=== PATIENT | female | born 1985 | race Caucasian/White ===

== ENCOUNTER → 2016-07-08 12:45 | Outpatient (CLI) | payer MEDICAID ==
[2010-05-29 07:37] VITALS: BMI 29.2
== END | disposition home or self-care (01) ==
LOC: D.MRI 12:45
DX: M54.12 Radiculopathy, cervical region (principal); D49.6 Neoplasm of unspecified behavior of brain

== ENCOUNTER 2016-09-16 05:06 | Inpatient (IN) | payer MEDICAID ==
[2016-09-15 13:38] LABS: HEMATOCRIT 44.2 % (36.0-48.0); HEMOGLOBIN 14.8 g/dL (12-16); MCHC 33.5 g/dL (31.0-37.0); MCV 101.6 fL (80.0-100.0); MEAN PLATELET VOLUME 10.2 fL (7.4-10.4); RBC 4.35 10x6/uL (4.00-5.40); RDW 12.5 % (11.5-14.5); WBC 10.2 10x3/uL (4.8-10.8)
[~2016-09-16] VITALS: Ht 163.8 cm; Wt 68.1 kg
[2016-09-16] VITALS (18 sets, daily range): BP systolic 92–122; BP diastolic 40–87; Ht 163.8 cm; Wt 68.1 kg
[~2016-09-16 05:06] MED LIST: GABAPENTIN100 MG PO; KLONOPIN1 MG PO; LATUDA40 MG PO; OMEPRAZOLE40 MG PO; ROBAXIN500 MG PO; ZOVIRAX800 MG PO
[2016-09-16 06:23] LABS: HCG URINE NEGATIVE (NEGATIVE)
--- NOTE | 2016-09-16 10:30 | NUR ---
PT ARRIVED BY BED FROM RECOVERY ROOM. PLACED ON ICU MONITORS. CALL LIGHT WITHIN REACH. ORIENTED TO ROOM.
--- NOTE | 2016-09-16 11:20 | NUR ---
PT'S STEP MOM AT BEDSIDE. UPDATED ON PT'S STATUS.
--- NOTE | 2016-09-16 13:56 | NUR ---
PT ASSISTED UP TO THE RESTROOM. TOLERATED WELL. SOFT COLLAR PLACED ON PT FOR AMBULATION. VSS AT THIS TIME.
--- NOTE | 2016-09-16 16:38 | NUR ---
DR. VIDALES AT BEDSIDE. SPOKE WITH PT AND CALLED PT'S MOM ON TELEPHONE AND UPDATED THEM ON PT'S STATUS.
--- NOTE | 2016-09-16 16:41 | NUR ---
HANDOFF REPORT GIVEN TO KIMBERLEE MOSS RN
--- NOTE | 2016-09-16 16:45 | NUR ---
REC'D REPORT FROM KRYS AGOSTO RN, AND RESUMED CARE, PATIENT SLEEPING WITH NO SIGNS OF DISTRESS, VSS, LEFT NECK DRESSING CDI, DENIES PAIN AT THIS TIME, BLOODY DRAINAGE TO COMPRESSED BERNY BULB, WILL CONTINUE WITH POC
--- NOTE | 2016-09-16 17:10 | NUR ---
DINNER TRAY TO BEDSIDE, INDEPENDENT WITH SET UP AND EATING
--- NOTE | 2016-09-16 18:00 | NUR ---
FAMILY AT BEDSIDE, STATUS UPDATED, NO NEEDS AT THIS TIME, PATIENT RESTING, WATCHING TV, CALL LIGHT IN REACH
--- NOTE | 2016-09-16 19:15 | NUR ---
REC'D TO CARE, ASSISTED TO BR WITH SOFT NECK COLLAR ON. BACK TO BED. SEE MECHANICAL OPERATOR. PT RECENTLY HAD PRN PAIN MED FOR NECK. L NECK DSG C/D/I. VSS. NO SIGN OF DISTRESS. ALARMS ON AND C/L IN REACH.
--- NOTE | 2016-09-16 19:50 | NUR ---
PT ON PHONE, REPORTS ADEQUATE PAIN RELIEF.
--- NOTE | 2016-09-16 21:43 | NUR ---
UP TO BR WITH ASSIST AND NECK COLLAR. BACK TO BED, ADMIN PRN ROBAXIN PER PT REQUEST. ALARMS ON AND C/L IN REACH.
--- NOTE | 2016-09-16 22:38 | NUR ---
ADMIN PRN NORCO FOR C/O INCISIONAL PAIN - ALARMS ON AND C/L IN USE.
[2016-09-17] VITALS (8 sets, daily range): BP systolic 97–112; BP diastolic 53–79
--- NOTE | 2016-09-17 01:23 | NUR ---
RESTING WITH EYES CLOSED, VSS. NO SIGN OF DISTRESS.
--- NOTE | 2016-09-17 03:15 | NUR ---
REASSESSMENT PER FLOWSHEET, NO ACUTE CHANGES. PT RESTING QUIETLY, VSS.
--- NOTE | 2016-09-17 06:04 | NUR ---
PT TO BR, VOIDED 450ML CLEAR, YELLOW URINE. THERESA-CARE PER PT AND BACK TO BED, ADMIN PRN MED PER PT REQUEST - SEE MAR. ALARMS ON AND C/L IN REACH.
--- NOTE | 2016-09-17 07:20 | NUR ---
RECEIVED PT FOR CARE. PT SITTING UP IN BED TALKING IN TELEPHONE. NO NEEDS AT THIS TIME. CALL LIGHT WITHIN REACH.
[2016-09-17] MEDS ORDERED: NORCO 7.5/325 T1 TA1 PO (09:57)
--- NOTE | 2016-09-17 10:15 | NUR ---
RIGHT HAND PIV D/C'D WITH CATH TIP INTACT. PT TOLERATED WELL. DISCUSSED ALL DISCHARGE INSTRUCTIONS. PT VOICED UNDERSTANDING. PT GIVEN PRESCRIPTION FOR LORTAB FROM DR. VIDALES.
--- NOTE | 2016-09-17 10:30 | NUR ---
PT TAKEN TO VEHICLE BY WHEELCHAIR. NO S/S OF DISTRESS NOTED. REPORTS HAVING ALL BELONGINGS WITH HER.
== END 2016-09-17 10:30 | disposition home or self-care (01) | DRG 30 ==
LOC: D.CVICU 05:06 → D.SDCHOLD 05:06 → D.CVICU 09:44
PROVIDERS: Anesthesiology; ADMIT Neurological Surgery
PROC: 0RG10A0 Fusion of Cervical Vertebral Joint with Interbody Fusion Device, Anterior Approach, Anterior Column, Open Approach (ICD-10-PCS; principal; 2016-09-16 07:30)
DX: M54.12 Radiculopathy, cervical region (principal); F17.200 Nicotine dependence, unspecified, uncomplicated; K21.9 Gastro-esophageal reflux disease without esophagitis

== ENCOUNTER → 2017-09-10 13:37 | Outpatient (CLI) | payer MEDICAID ==
[2016-09-16 10:43] VITALS: BMI 25.3
[~2017-09-10 13:37] MED LIST changes: +NORCO 7.5/325 T1 TA1 PO
== END | disposition home or self-care (01) ==
LOC: D.MRI 13:37
DX: M54.5 Low back pain (principal)

== ENCOUNTER → 2017-10-13 08:43 | Outpatient (CLI) | payer MEDICAID ==
[2016-09-16 10:43] VITALS: BMI 25.3
--- NOTE | ~2017-10-13 | EC ---
PATIENT:RAPHAEL VILLARREAL DATE OF SERVICE: 10/13/17 SEX: F MEDICAL RECORD: [id number] DATE OF : [birth year] LOCATION:[facility] AGE OF PATIENT: 32 ADMISSION DATE: 10/13/17 REFERRING PHYSICIAN: INTERPRETING PHYSICIAN: APOLINAR WALTERS MD ECHOCARDIOGRAM REPORT ECHO CHARGES 4 ECHO COMPLETE Date: 10/13 CLINICAL DIAGNOSIS: CP, TACHYCARDIA, DYSPENIA, PALPATATIONS ECHOCARDIOGRAPHIC MEASUREMENTS (adult normal given) AC root (d.<3.7cm) 2.0 cm LV Septum d (<1.2 cm> 1.1 cm Valve Excursion 1.4 cm LV Septum (systole) 1.4 cm Left Atria (s.<4.0cm> 2.6 cm LVPW d(<1.2cm) 1.0 cm RV (d.<2.3cm) 2.1 cm LVPW (sytole) 1.3 cm LV diastole(<5.6CM) 4.3 cm MV E-F(>70mm/sec) cm LV systole 3.6 cm LVOT Diameter 1.9 cm MV exc.(>10mm) cm Est.ejection fraction (50-75%) % DOPPLER: LVIT cm/sec A 43 cm/sec E 63 cm/sec LA cm/sec RVSP 22.9 mmHg LVOT 86 cm/sec AOP1/2T m/s Asc. Ao 77 cm/sec RVOT 60 cm/sec RA cm/sec PA 80 cm/sec AV Gradient Peak 2.4 mmHg AV Mean 1.6 mmHg AV Area 2.8 cm MV Gradient Peak 2.0 mmHg MV Mean 0.9 mmHg MV Area cm COMMENTS: Digital Analytics Manager: Art ANDERSON Automatic Gluing Machine Operator: Keira Walters TAPE# PACS Pericardial Effusion N DATE OF SERVICE: PROCEDURE: Transthoracic echocardiogram. FINDINGS: 1. Left ventricle is normal size, shape, structure, and function. 2. Inflow characteristics are normal. 3. Ejection fraction is 60%. There are no regional wall motion abnormalities. 4. The right ventricle is normal. 5. The left atrium is normal. ECHOCARDIOGRAM REPORT [id number] RAPHAEL VILLARREAL 6. The aortic valve is normal. 7. The mitral valve has trace mitral regurgitation. 8. The tricuspid valve has trace tricuspid regurgitation. The RVSP is normal. CONCLUSIONS: A normal echocardiogram for patient's stated age. TRANSINT:[id number] Voice Confirmation ID: [id number] DOCUMENT ID: [id number] APOLINAR WALTERS MD at 1144 CC: [id number] DICTATION DATE: 10/13/17 1139 PENAL OFFICER: 10/13/17 1312 DEP CLI 10/13/17 [id number] [place] [address]
== END | disposition home or self-care (01) ==
LOC: D.ECHO 08:43
DX: R07.89 Other chest pain (principal); R00.0 Tachycardia, unspecified; I10 Essential (primary) hypertension; R06.02 Shortness of breath; R00.2 Palpitations

== ENCOUNTER → 2017-11-02 16:42 | Outpatient (CLI) | payer MEDICAID ==
[2016-09-16 10:43] VITALS: BMI 25.3
[2017-11-02 19:30] LABS: CHOL - HDL RATIO 3.6 ratio (2.3-4.1); LDL-HDL RATIO 2.3 ratio (1.5-3.5)
== END | disposition home or self-care (01) ==
LOC: D.LABREF 16:42
PROVIDERS: Internal Medicine Cardiovascular Disease
DX: R07.9 Chest pain, unspecified (principal); I10 Essential (primary) hypertension; R06.02 Shortness of breath

== ENCOUNTER → 2017-12-15 07:58 | Outpatient (CLI) | payer MEDICAID ==
[2016-09-16 10:43] VITALS: BMI 25.3
--- NOTE | ~2017-12-15 | ST ---
PATIENT:RAPHAEL VILLARREAL MEDICAL RECORD: [id number] SEX: F LOCATION:[facility] ORDER #: ADMISSION DATE: 12/15/17 AGE OF PATIENT: 32 REFERRING PHYSICIAN: INTERPRETING PHYSICIAN: APOLINAR WALTERS MD DATE OF SERVICE: 12/15/2017 The patient underwent a Lexiscan-directed nuclear stress test with standard protocol. The patient tolerated the procedure without any difficulty. A 12.5 mCi sestamibi injected at stress and at rest, and 31.5 mCi sestamibi injected at stress. The patient tolerated the procedure well. She had mild flushing and discomfort, but no distinct angina. There were no significant EKG changes through the procedure. The patient had gated imaging, showed ejection fraction of 76%. SPECT imaging showed no evidence of ischemia or infarction. This is a normal nuclear stress test, images being of acceptable quality. The patient is in a good prognostic category and no significant evidence of significant obstructive coronary disease. TRANSINT:[id number] Voice Confirmation ID: [id number] DOCUMENT ID: [id number] APOLINAR WALTERS MD at 2344 CC: [id number] DICTATION DATE: 12/16/17912 PATTERN WORKER: 12/16/17 2308 DEP CLI 12/15/17 [id number] [place] [address]
== END | disposition home or self-care (01) ==
LOC: D.NM 12-08 08:00
DX: I10 Essential (primary) hypertension (principal); R07.9 Chest pain, unspecified; R00.0 Tachycardia, unspecified; R06.02 Shortness of breath; R00.2 Palpitations

== ENCOUNTER → 2020-05-14 13:48 | Outpatient (CLI) | payer MEDICAID, OTHER ==
[2016-09-16 10:43] VITALS: BMI 25.3
--- NOTE | ~2020-05-14 | EC ---
PATIENT:RAPHAEL VILLARREAL DATE OF SERVICE: 05/14/20 SEX: F MEDICAL RECORD: [id number] DATE OF : [birth year] LOCATION:[facility] AGE OF PATIENT: 34 ADMISSION DATE: 05/14/20 REFERRING PHYSICIAN: INTERPRETING PHYSICIAN: RADHA LEWIS MD ECHOCARDIOGRAM REPORT ECHO CHARGES 4 ECHO COMPLETE Date: 05/14/20 CLINICAL DIAGNOSIS: HX OF HTN/PVC'S ASSESS EF AND VALVES ECHOCARDIOGRAPHIC MEASUREMENTS (adult normal given) AC root (d.<3.7cm) 3.2 cm LV Septum d (<1.2 cm> 1.2 cm Valve Excursion 1.4 cm LV Septum (systole) 1.3 cm Left Atria (s.<4.0cm> 3.3 cm LVPW d(<1.2cm) 1.3 cm RV (d.<2.3cm) 3.0 cm LVPW (sytole) 1.5 cm LV diastole(<5.6CM) 4.3 cm MV E-F(>70mm/sec) cm LV systole 2.8 cm LVOT Diameter 1.9 cm MV exc.(>10mm) 1.4 cm Est.ejection fraction (50-75%) % DOPPLER: LVIT cm/sec A 71.0 cm/sec E 79.0 cm/sec LA cm/sec RVSP 37 mmHg LVOT 111 cm/sec AOP1/2T m/s Asc. Ao 136 cm/sec RVOT 83 cm/sec RA cm/sec PA 126 cm/sec AV Gradient Peak 7.44 mmHg AV Mean 3.76 mmHg AV Area 2.3 cm MV Gradient Peak 4.45 mmHg MV Mean 1.59 mmHg MV Area cm COMMENTS: Agricultural Aircraft Pilot: 2 FALLON PHILLIPS Analytics Manager: 3 Dr. Huertas TAPE# PACS Pericardial Effusion N DATE OF SERVICE: Adequate 2D, color flow imaging, spectral Doppler, and M-Mode. FINDINGS: Borderline LVH. LV internal dimension is normal. Wall motion is normal. EF is greater than or equal to 55%. Aortic valve is tricuspid with good valve excursion. Left atrium is normal at 3.3 cm. Mitral valve shows no prolapse. Trivial MR. Right size is grossly normal. Trivial TR. TRANSINT:[id number] Voice Confirmation ID: [id number] DOCUMENT ID: [id number] ECHOCARDIOGRAM REPORT [id number] RAPHAEL VILLARREAL GREGORY A MD CC: [id number] DICTATION DATE: 05/15/20812 [employer]IL [employer] DEPUTY SHERIFF: 05/15/20 1200 DEP CLI 05/14/20 [place] [id number]
== END | disposition home or self-care (01) ==
LOC: D.HCCECHO 13:48
PROVIDERS: ATTEND Internal Medicine Interventional Cardiology
DX: I10 Essential (primary) hypertension (principal)